=== PATIENT | male | born 1975 | race Caucasian/White ===

== ENCOUNTER → 2021-03-26 13:34 | Outpatient (BNVA) | payer BC, SELFPAY | PROVIDERS: Family Provider Nurse Practitioner; PCP Nurse Practitioner; Visit Provider Nurse Practitioner Family | DX: Z13.9 Encounter for screening, unspecified (principal); Z11.52 Encounter for screening for COVID-19 | CPT/HCPCS: 87635 ==

== ENCOUNTER 2021-08-30 10:07 | Emergency (ER) | payer BC, SELFPAY ==
[2021-08-30 10:19] VITALS: BMI 26.6
--- NOTE | 2021-08-30 10:26 | ED_ITS ---
Documented by User: Gail Thompson PA-C 08/30/21 10:49 HPI - Allergic Reaction General: Chief complaint: Allergic Reaction Stated complaint: Allergic reaction/bee sting on mouth Time Seen by Provider: 08/30/21 10:20 Source: patient Mode of arrival: ambulatory Limitations: no limitations History of Present Illness: HPI narrative: 45-year-old male presents to the ER today after being stung by a wasp in the lower lip about 30 minutes ago. Patient reports he immediately started swelling and was having to clear his throat. He did take [address] Benadryl [address] way here and reports significant improvement in the swelling of the lower lip. He reports there is some swelling in his jaws but no longer feels like he needs to clear his throat. Patient reports has been stung by wasp before and never had any type of anaphylactic reaction. Patient denies any difficulty breathing at this time. Review of Systems General: Reports: 10 or more systems reviewed and unremarkable except in HPI and below Physical Exam Const: COMMON NORMALS: no acute distress, average body habitus, patient oriented x3, no limitations, healthy appearing, alert and well nourished HENMT: MOUTH: tongue normal, lip abnormal and other (moderate swelling of the lower lip, no tongue swelling noted) THROAT: posterior oropharynx normal and other (no swelling noted) Neck/C-Spine: COMMON NORMALS: no lymphadenopathy Resp: COMMON NORMALS: normal respiratory effort, No retractions and clear to auscultation bilaterally AUSCULTATION: clear to auscultation bilaterally Cardio: COMMON NORMALS: regular rate and regular rhythm RATE: regular rate RHYTHM: regular rhythm Extremity: COMMON NORMALS: full ROM Neuro: COMMON NORMALS: patient oriented x3 SENSORIUM/ORIENTATION: Yes alert Psych: COMMON NORMALS: mental status grossly normal, Normal thought process present and cooperative THOUGHT PROCESS: Normal thought process present Skin: NARRATIVE SKIN EXAM: see face exam Course ED course: 45-year-old male presents to the ER today for a wasp sting to the lower lip that occurred about 30 minutes prior to arrival. Patient reports he had severe swelling initially. He did take 25 mg of Benadryl and the swelling has improved slightly. At first patient felt like he was needing to clear his throat however after taking Benadryl that did improve. Patient reports some swelling into the jaws but denies any difficulty breathing. Patient denies having had a reaction like this before to a wasp. MDM - Allergic Reaction Medical Decision Making 45-year-old male presents to the ER today for a wasp sting to the lower lip that occurred about 30 minutes prior to arrival. Patient reports he had severe swelling initially. He did take 25 mg of Benadryl and the swelling has improved slightly. At first patient felt like he was needing to clear his throat however after taking Benadryl that did improve. Patient reports some swelling into the jaws but denies any difficulty breathing. Patient denies having had a reaction like this before to a wasp. On exam patient has moderate swelling to the lower lip with some mild swelling into the jaws however there is no swelling of the tongue or airway. Patient is breathing normally at this time. Patient is in no acute distress. The swelling has improved per the patient. We will go ahead and do 125 mg of Solu-Medrol in addition to Pepcid. Would recommend patient continue Benadryl every 4-6 hours at home and also famotidine this evening. Would recommend Zyrtec daily until improved. Return to the ER with new or worsening symptoms. Patient verbalized understanding and is in agreement with the treatment plan. Critical Care Time Critical Care Time: Critical Care Time: No Discharge Plan Discharge Patient Disposition: Home Clinical Impression: Allergic reaction to wasp sting Condition: Stable Prescriptions: No Action methylprednisolone [Medrol ([facility]ark)] 4 mg tablets,dose pack See Rx Instructions PO PER PKG DIR Qty: 21 0RF Rx Instructions: PO PER PKG DIR azithromycin [Zithromax Z-Clark] 250 mg tablet See Rx Instructions PO .COMPLEX Qty: 6 0RF Rx Instructions: take 500 mg today (day 1), then 250 mg for 4 days (days 2-5) PO albuterol sulfate [ProAir HFA] 90 mcg/actuation HFA aerosol inhaler 2 puff inhalation QID PRN (Reason: shortness of breath or wheezing) Qty: 8.5 6RF budesonide-formoterol [Symbicort] 160-4.5 mcg/actuation HFA aerosol inhaler 2 puff inhalation BID Qty: 10.2 6RF dextromethorphan-guaifenesin [Antitussive DM] 10-100 mg/5 mL syrup 10 ml PO Q4H PRN (Reason: cough) Qty: 237 1RF Discharge Orders: Discharge ED (Routine); Ordered 08/30/21 Ordered By: Gail Thompson Referrals: Trinidad Davalos, [facility] [Primary Care Provider] - Discharge Diet: Usual diet Discharge Activity: Resume usual activity Patient Instructions: Insect Bite or Sting (ED), Opioid Safety Activity Restrictions/Additional Instructions: Take 50 mg of Benadryl every 4-6 hours until swelling has improved. Take Zyrtec, 10 mg once daily until improved. Take famotidine 20 mg twice daily until improved. Take prednisone as prescribed. Follow-up PCP in 3 to 5 days if no improvement. Return to the ER with new or worsening symptoms. Coding Level of Care Code ED Clinical Engineering Director for Chg Fwd Exam Detailed Documented by User: Lauro Corona MD 09/11/21 00:21 HPI - Allergic Reaction General: Chief complaint: Allergic Reaction Stated complaint: Allergic reaction/bee sting on mouth Time Seen by Provider: 08/30/21 10:20 MDM - Allergic Reaction Medical Decision Making 45-year-old male presents to the ER today for a wasp sting to the lower lip that occurred about 30 minutes prior to arrival. Patient reports he had severe swelling initially. He did take 25 mg of Benadryl and the swelling has improved slightly. At first patient felt like he was needing to clear his throat however after taking Benadryl that did improve. Patient reports some swelling into the jaws but denies any difficulty breathing. Patient denies having had a reaction like this before to a wasp. On exam patient has moderate swelling to the lower lip with some mild swelling into the jaws however there is no swelling of the tongue or airway. Patient is breathing normally at this time. Patient is in no acute distress. The swelling has improved per the patient. We will go ahead and do 125 mg of Solu-Medrol in addition to Pepcid. Would recommend patient continue Benadryl every 4-6 hours at home and also famotidine this evening. Would recommend Zyrtec daily until improved. Return to the ER with new or worsening symptoms. Patient verbalized understanding and is in agreement with the treatment plan. I discussed this case with Gail HOPKINS. Her exam is markedly improved with minor symptoms compared to triage reported assessment Patient reportedly feels well with significant improvement for Benadryl. I reviewed documentation. Lauro Corona MD Emergency Medicine Discharge Plan Discharge Patient Disposition: Home Clinical Impression: Allergic reaction to wasp sting Condition: Stable Prescriptions: No Action methylprednisolone [Medrol ([facility])] 4 mg tablets,dose pack See Rx Instructions PO PER PKG DIR Qty: 21 0RF Rx Instructions: PO PER PKG DIR azithromycin [Zithromax Z-Clark] 250 mg tablet See Rx Instructions PO .COMPLEX Qty: 6 0RF Rx Instructions: take 500 mg today (day 1), then 250 mg for 4 days (days 2-5) PO albuterol sulfate [ProAir HFA] 90 mcg/actuation HFA aerosol inhaler 2 puff inhalation QID PRN (Reason: shortness of breath or wheezing) Qty: 8.5 6RF budesonide-formoterol [Symbicort] 160-4.5 mcg/actuation HFA aerosol inhaler 2 puff inhalation BID Qty: 10.2 6RF dextromethorphan-guaifenesin [Antitussive DM] 10-100 mg/5 mL syrup 10 ml PO Q4H PRN (Reason: cough) Qty: 237 1RF Discharge Orders: Discharge ED (Routine); Ordered 08/30/21 Ordered By: Gail Thompson Referrals: Trinidad Davalos, [facility] [Primary Care Provider] - Discharge Diet: Usual diet Discharge Activity: Resume usual activity Patient Instructions: Insect Bite or Sting (ED), Opioid Safety Activity Restrictions/Additional Instructions: Take 50 mg of Benadryl every 4-6 hours until swelling has improved. Take Zyrtec, 10 mg once daily until improved. Take famotidine 20 mg twice daily until improved. Take prednisone as prescribed. Follow-up PCP in 3 to 5 days if no improvement. Return to the ER with new or worsening symptoms. Coding Level of Care Code ED Clinical Engineering Director for Chg Fwd Exam Detailed
[2021-08-30] MEDS: famotidine 20 mg Tablet PO (10:35)
== END 2021-08-30 10:45 | disposition home or self-care (01) ==
PROVIDERS: Emergency Provider Physician Assistant; PCP Nurse Practitioner
DX: T63.481A Toxic effect of venom of other arthropod, accidental (unintentional), initial encounter (principal)
CPT/HCPCS: 96372; 99284; J2930

== ENCOUNTER → 2024-04-13 10:27 | Outpatient (BNVA) | payer BC, SELFPAY | PROVIDERS: Family Provider Nurse Practitioner Family; PCP Nurse Practitioner Family; Visit Provider Nurse Practitioner Family | DX: I10 Essential (primary) hypertension (principal); Z12.5 Encounter for screening for malignant neoplasm of prostate | CPT/HCPCS: 80053; 80061; 83735; 84443; 85025 ==